=== PATIENT | male | born 1940 | race Caucasian/White ===

== ENCOUNTER 2017-03-19 13:01 | Observation (INO) | payer OTHER ==
[~2017-03-19] VITALS: Ht 193 cm; Wt 95.4 kg
[~2017-03-19 13:01] MED LIST: ACIDOPHILUS1 EAC3 PO; AMBIEN10 M1 PO; AMBIEN10 MG PO; AMIODARONE HCL200 MG PO; AMOXICILLIN500 MG PO; ASPIRIN EC325 M1 PO; Ambien PO; BACTRIM,SEPT1 TABLET PO; BUPROBAN150 MG PO; CARDIZEM120 MG PO; CIPRO500 MG PO; CITALOPRAM HBR40 M1 PO; CLINDAMYCIN HC300 MG PO; COUMADIN,JANTO2.5 MG PO; COUMADIN4 MG PO; COZAAR100 MG PO; CYCLOBENZAPRINE10 MG PO; Cardizem PO; Colace PO; Cozaar PO; DESYREL 150 MG150 MG PO; DESYREL12.5 MG PO; DILTIAZEM ER120 M1 PO; DIOVAN; DULCOLAX10 MG PR; Desyrel PO; ECOTRIN325 MG PO; ENSURE113 GM PO; Ecotrin PO; FLEET ENEMA-AD118 ML PR; FLEXERIL10 MG PO; FUROSEMIDE40 MG PO; Flexeril PO; GABAPENTIN300 MG PO; GENACOTE325 MG PO; HYDROCHLOROTHIA25 MG PO; HYDROCHLOROTHIAZIDE; HYDROCODON-ACE1 EAC7 PO; Hydrodiuril,Oretic,E PO; IMODIUM MS REL1 EACH PO; IRON325 M1 PO; K-DUR20 MEQ PO; K-Dur PO; KLOR-CON; KLOR-CON M2020 MEQ PO; LASIX40 MG PO; LEVAQUIN750 MG PO; LITE COAT ASPI325 M1 PO; LOSARTAN POTAS100 MG PO; Lovenox SC; METHADONE5 MG PO; METOPROLOL TART50 MG PO; MIRALAX255 GM PO; MORPHINE SULFAT15 M1 PO; MORPHINE SULFAT30 M2 PO; MS CONTIN,ORAMO15 M1 PO; NEURONTIN100 MG PO; Nitrostat,NitroQuick SL; Normal Saline,NaCl 0 IV; OMEPRAZOLE20 M2; OMEPRAZOLE20 MG PO; OMEPRAZOLE40 MG PO; OXAYDO5 MG PO; OXYCODONE HCL10 M1; OXYCODONE HCL10 MG PO; OXYCODONE15 MG PO; OXYCODONE30 MG PO; OXYCONTIN10 MG PO; OxyCONTIN PO; PEPCID20 MG PO; PHILLIPS'400 MG/5 M PO; POTASSIUM CL MICRO; PRAVACHOL40 MG; PRAVACHOL40 MG PO; PRAVASTATIN SOD40 MG PO; PREDNISONE20 MG PO; PRILOSEC40 MG PO; PROAIR HFA8.5 GM; PROTONIX40 MG PO; Pravachol PO; Protonix PO; QUETIAPINE FUMA50 MG PO; RESTORIL15 MG PO; ROXICODONE5 MG PO; SENNA PLUS TAB1 EACH PO; SERTRALINE HCL100 MG PO; SERTRALINE HCL50 MG PO; TRAZODONE HCL150 MG PO; TYLENOL REGULA325 MG PO; WARFARIN SODIUM; WELLBUTRIN XL150 MG; WELLBUTRIN XL150 MG PO; Wellbutrin XL PO; ZOLOFT100 MG PO; Zofran IV; Zoloft PO; [UNRECOGNIZED DRUG - CODE]; [UNRECOGNIZED DRUG - OTHER]
[2017-03-19 13:53] LABS: HEMATOCRIT 44.2 % (38.0-50.0); MCH 29.1 PG (29.0-34.0); MCHC 32.8 G/DL (30.0-36.0); MCV 88.6 FL (86-99); MEAN PLAT.VOLUME 10.3 uM^3 (9.0-12.4); PLATELET COUNT 201 K/uL (156-360); RBC DIS.WIDTH-CV 12.8 % (11.8-14.6); RBC DIS.WIDTH-SD 41.5 % (39-53); RED BLOOD COUNT 4.99 M/uL (4.00-5.50); WHITE BLOOD COUNT 7.5 K/uL (4.1-10.2)
[2017-03-19 14:04] LABS: CHLORIDE 103 mEq/L (99-109); POTASSIUM 4.1 mEq/L (3.7-5.4); SODIUM 138 mEq/L (136-147)
[2017-03-19 14:05] LABS: GLUCOSE 249 mg/dL (70-99)
[2017-03-19 14:07] LABS: ANION GAP 9 MEQ/L (2-14)
[2017-03-19 14:09] LABS: GFR ESTIMATE (CALCULATED) > 59 mL/min/
[2017-03-19 14:10] LABS: UREA NITROGEN (BUN) 9 mg/dL (9-23)
[2017-03-19 14:14] LABS: TROP-I INTERPRETATION NEGATIVE; TROPONIN-I < 0.01 ng/mL (0.0-0.30)
[2017-03-19] MEDS ORDERED: LO-DOSE ASPIRIN81 M2 PO (17:02)
[2017-03-19] MEDS ORDERED: NEURONTIN300 MG PO (17:03)
[2017-03-19] MEDS ORDERED: TEMAZEPAM15 MG PO (17:04)
[2017-03-19] MEDS ORDERED: CYMBALTA60 MG PO (17:04)
[2017-03-19] MEDS ORDERED: BUSPAR5 MG PO (17:04)
[2017-03-19] MEDS ORDERED: ADVIL,NUPRIN,M200 MG PO (17:04)
[2017-03-19 18:45] VITALS: BP 222/104
[2017-03-19 20:00] VITALS: BP 180/89
[2017-03-19 20:34] LABS: TROP-I INTERPRETATION NEGATIVE; TROPONIN-I 0.01 ng/mL (0.0-0.30)
[2017-03-20 00:14] VITALS: BP 170/87
[2017-03-20 02:14] LABS: TROP-I INTERPRETATION NEGATIVE; TROPONIN-I < 0.01 ng/mL (0.0-0.30)
[2017-03-20 03:47] VITALS: BP 177/92
[2017-03-20 06:02] LABS: HEMATOCRIT 40.7 % (38.0-50.0); MCH 29.7 PG (29.0-34.0); MCHC 33.7 G/DL (30.0-36.0); MCV 88.3 FL (86-99); MEAN PLAT.VOLUME 11.6 uM^3 (9.0-12.4); PLATELET COUNT 185 K/uL (156-360); RBC DIS.WIDTH-CV 13.1 % (11.8-14.6); RBC DIS.WIDTH-SD 41.9 % (39-53); RED BLOOD COUNT 4.61 M/uL (4.00-5.50); WHITE BLOOD COUNT 8.1 K/uL (4.1-10.2)
[2017-03-20 06:53] LABS: ANION GAP 9 MEQ/L (2-14); CHLORIDE 102 MEQ/L (99-109); GFR ESTIMATE (CALCULATED) > 59 mL/min/; GLUCOSE 146 mg/dL (70-99); POTASSIUM 3.8 MEQ/L (3.7-5.4); SAMPLE HEMOLYSIS CHECK 0; SAMPLE ICTERIC CHECK 0; SAMPLE LIPEMIA CHECK 0; SODIUM 136 MEQ/L (136-147); UREA NITROGEN (BUN) 10 mg/dL (9-23)
[2017-03-20 06:56] VITALS: BP 140/78
[2017-03-20] MEDS ORDERED: LOPRESSOR50 MG PO (10:21)
== END 2017-03-20 11:52 | disposition home or self-care (01) ==
LOC: EME 13:01 → EDOF 17:28 → 5WEST 18:22
PROVIDERS: Hospitalist
DX: R07.9 Chest pain, unspecified (principal); I48.2 Chronic atrial fibrillation; I10 Essential (primary) hypertension; I73.9 Peripheral vascular disease, unspecified; Z89.612 Acquired absence of left leg above knee; Z87.19 Personal history of other diseases of the digestive system; Z87.891 Personal history of nicotine dependence; Z79.82 Long term (current) use of aspirin; Z82.3 Family history of stroke; Z83.3 Family history of diabetes mellitus; Z88.8 Allergy status to other drugs, medicaments and biological substances; Z91.013 Allergy to seafood
CPT/HCPCS: 71020; 71275; 80048; 84484; 85027; 85379; 93005; 99281; 99285; G0378; J0360; J1644

== ENCOUNTER 2018-01-27 08:02 | Emergency (ER) | payer OTHER ==
[~2018-01-27] VITALS: Ht 193 cm; Wt 95.0 kg
[~2018-01-27 08:02] MED LIST changes: +ADVIL,NUPRIN,M200 MG PO; +BUSPAR5 MG PO; +CYMBALTA60 MG PO; +LO-DOSE ASPIRIN81 M2 PO; +LOPRESSOR50 MG PO; +NEURONTIN300 MG PO; +TEMAZEPAM15 MG PO
[2018-01-27 09:14] LABS: HEMATOCRIT 39.6 % (38.0-50.0); HEMOGLOBIN 13.7 G/DL (12.5-16.6); MCH 31.3 PG (29.0-34.0); MCHC 34.6 G/DL (30.0-36.0); MCV 90.4 FL (86-99); PLATELET COUNT 188 K/uL (156-360); RBC DIS.WIDTH-CV 12.7 % (11.8-14.6); RBC DIS.WIDTH-SD 42.4 % (39-53); RED BLOOD COUNT 4.38 M/uL (4.00-5.50); WHITE BLOOD COUNT 8.8 K/uL (4.1-10.2)
[2018-01-27 09:25] LABS: CHLORIDE 102 mEq/L (99-109); POTASSIUM 3.8 mEq/L (3.7-5.4); SODIUM 137 mEq/L (136-147)
[2018-01-27 09:26] LABS: GLUCOSE 323 mg/dL (70-99)
[2018-01-27 09:30] LABS: CREATININE 0.8 mg/dL (0.6-1.3); GFR ESTIMATE (CALCULATED) > 59 mL/min/ (58.99-99999)
[2018-01-27 09:31] LABS: UREA NITROGEN (BUN) 14 mg/dL (9-23)
[2018-01-27 09:47] LABS: APPEARANCE CLEAR ((CLEAR)); BILIRUBIN NEGATIVE; BLOOD SMALL; COLOR YELLOW ((YELLOW)); GLUCOSE (STRIP) 50; KETONES NEGATIVE; LEUKOCYTES LARGE; NITRITE NEGATIVE; PROTEIN (STRIP) 30; SPECIFIC GRAVITY 1.018 (1.000-1.030)
[2018-01-27 09:55] LABS: BACTERIA RARE /HPF; EPITHELIAL CELLS RARE /HPF; MUCUS TRACE /LPF; UCUL ADDED? YES; WHITE BLOOD CELLS 40-50 /HPF (0-5)
[2018-01-27] MEDS ORDERED: NYSTOP60 GM TP (10:43)
[2018-01-27] MEDS ORDERED: CIPRO500 MG PO (10:43)
[2018-01-27 10:58] VITALS: BP 145/87
== END 2018-01-27 12:00 | disposition home or self-care (01) ==
LOC: EME 08:02
PROVIDERS: Nurse Practitioner Family
DX: N39.0 Urinary tract infection, site not specified (principal); E11.65 Type 2 diabetes mellitus with hyperglycemia; Z89.612 Acquired absence of left leg above knee; I10 Essential (primary) hypertension; K21.9 Gastro-esophageal reflux disease without esophagitis; F41.9 Anxiety disorder, unspecified; F32.9 Major depressive disorder, single episode, unspecified; Z95.0 Presence of cardiac pacemaker; Z96.659 Presence of unspecified artificial knee joint; Z85.828 Personal history of other malignant neoplasm of skin; Z87.891 Personal history of nicotine dependence; Z79.82 Long term (current) use of aspirin; Z91.040 Latex allergy status; Z88.0 Allergy status to penicillin; Z88.1 Allergy status to other antibiotic agents; Z88.8 Allergy status to other drugs, medicaments and biological substances
CPT/HCPCS: 71046; 80048; 81003; 83605; 85027; 87040; 87077; 87086; 87186; 99281; 99284